=== PATIENT | female | born 1935 | race Caucasian/White ===

== ENCOUNTER 2018-04-13 17:30 | Inpatient (IN) ==
[2018-04-13] MEDS ORDERED: SALINE FLUSH 10ml SYRINGE IV PRN (18:01)
[2018-04-13] MEDS ORDERED: MORPHINE SULFATE 2mg INJECTION IVP PRN (18:01)
--- OUTSIDE RECORDS SUMMARY | 2018-04-13 18:01 | External Medical Summary | Continuity of Care Document ---
:1935 Author Organization [facility] Allergies Active Description Code Type Severity Reaction Onset Reported/ Identified Relationship Clinical to Patient Status Yes ALBUTEROL 86151 Drug Moderate N/A 708 [place] [address] Drug Moderate N/A 220 Aller gy Yes DOXYCYCLINE 90001 Drug Moderate N/A 640 Aller gy Yes NARCOTICS 55459 Drug Moderate N/A 027 Aller gy Yes PCN 71193 Drug Moderate N/A (penicillin) 020 Aller gy Yes SULFA 58909 Drug Moderate N/A (sulfonamide 022 Aller ) gy Yes albuterol 1814 1 N/A heart races Yes doxycycline 2748 1 N/A N/A Yes NARCOTIC 1616 1 N/A sensitive ANTAGONIST (OBSOLETE) Yes Penicillins 476 3 N/A N/A Yes Sulfa 491 3 N/A N/A (Sulfonamide Antibiotics) Medications Medication Packaging Start Date Stop Date Route Dosage Sig 10/04/2014 PO 5 mg Dulcolax DAILY Xopenex 10/04/2014 ORAL INH 15 gm Hfa PRN 10/04/2014 PO 20 mg Omeprazole HS 10/04/2014 PO 100 mg Benzonatate PRN Advair 10/04/2014 PO 1 each 500-50 Diskus BID 10/04/2014 PO 40 mg Simvastatin DAILY 03/05/2018 PO 20 SIMVASTATIN (ZOCOR) TAB : 20MG 03/05/2018 PO 20 OMEPRAZOLE (PRILOSEC) CAPSULE : 20MG DIGOXIN 03/06/2018 PO 0.125 (LANOXIN) TAB :0.125MG 03/06/2018 PO 180 DILTIAZEM (TAZTIA XT) CAP : 180 MG XARELTO 03/06/2018 PO 20 TAB: 20 MG 03/06/2018 PO 500 METRONIDAZOLE (FLAGYL) TAB : 250MG Problems Date Dx Attending Type Code Diagnosis Diagnosed By Coded 11/09/2017 QUINCY ECHEVERRIA R0902 Hypoxemia 11/09/2017 QUINCY ECHEVERRIA R5381 Other malaise 11/09/2017 QUINCY ECHEVERRIA R6883 Chills (without fever) 02/22/2018 QUINCY ECHEVERRIA L84 Corns and callosities 03/07/2018 ZACARIAS VILLAR S [id number] Elevated white blood cell count, unspecified 03/07/2018 ZACARIAS VILLAR P E860 Dehydration 03/07/2018 ZACARIAS VILLAR S I10 Essential (primary) hypertension 03/07/2018 ZACARIAS VILLAR S J449 Chronic obstructive pulmonary disease, unspecified 03/07/2018 ZACARIAS VILLAR A R531 Weakness 03/23/2018 QUINCY ECHEVERRIA R13115 Elevated white blood cell count, unspecified 03/23/2018 QUINCY ECHEVERRIA E1165 Type 2 diabetes mellitus with hyperglycemia 03/23/2018 QUINCY ECHEVERRIA R531 Weakness 04/05/2018 QUINCY ECHEVERRIA [id number] Elevated white blood cell count, unspecified 04/05/2018 QUINCY ECHEVERRIA E1165 Type 2 diabetes mellitus with hyperglycemia 04/05/2018 QUINCY ECHEVERRIA R531 Weakness Procedures There is no data. Results Test Result Range INFLUENZA A & B, MOLECULAR - 11/09/17 13:35 INFLUENZA A NEGATIVE NORMAL: NEGATIVE INFLUENZA B NEGATIVE NORMAL: NEGATIVE COMP METABOLIC - 11/09/17 14:24 COMP METABOLIC LAB NRG GLUCOSE 116 mg/dL 70 - 110 BUN 18 mg/dL 7 - 18 CREATININE 1.23 mg/dL 0.60 - 1.30 AGE 82 YEARS NRG GFR 41.7 60.0 - 120 SODIUM 140 mmol/L 136 - 145 POTASSIUM 3.9 mmol/L 3.5 - 5.1 CHLORIDE 104 mmol/L 98 - 107 CO2 28 mmol/L 21 - 32 CALCIUM 8.9 mg/dL 8.5 - 10.1 AST 57 U/L 15 - 37 ALT 47 U/L 12 - 78 ALKALINE PHOS 82 U/L 50 - 136 TOTAL PROTEIN 7.4 g/dL 6.4 - 8.2 ALBUMIN 3.4 g/dL 3.4 - 5.0 TOTAL BILI 0.20 mg/dL 0.00 - 1.00 CBC W/ DIFF - 11/09/17 14:24 CBC W/ DIFF LAB NRG WBC 7.5 x10^3 4.8 - 10.8 RBC 4.27 x10^6 4.20 - 5.40 HEMOGLOBIN 11.1 g/dL 12.0 - 16.0 HEMATOCRIT 35.2 % 37.0 - 47.0 MCV 82 fL 80 - 100 MCH 26.0 pg 27.0 - 33.0 MCHC 31.5 g/dL 33.0 - 37.0 RDW 14.0 % 11.5 - 14.5 PLATELETS 322 x10^3 150 - 450 MPV 10.8 fL 7.8 - 11.0 NEUTROPHILS 54.7 % 40.0 - 80.0 LYMPHOCYTES 27.9 % 20.0 - 45.0 MONOCYTES 12.4 % 0.0 - 10.0 EOSINOPHILS 3.7 % 0.0 - 5.0 BASOPHILS 0.9 % 0.0 - 2.0 IMMATURE GRAN 0.4 % 0.0 - 2.0 NUCLEATED RBC'S 0.0 % 0.0 - 1.0 REFLEX MAN DIFF NO NRG CBC W/ DIFF - 03/05/18 16:02 CBC W/ DIFF LAB NRG WBC 15.1 x10^3 4.8 - 10.8 RBC 3.92 x10^6 4.20 - 5.40 HEMOGLOBIN 9.4 g/dL 12.0 - 16.0 HEMATOCRIT 31.6 % 37.0 - 47.0 MCV 81 fL 80 - 100 MCH 24.0 pg 27.0 - 33.0 MCHC 29.7 g/dL 33.0 - 37.0 RDW 14.6 % 11.5 - 14.5 PLATELETS 336 x10^3 150 - 450 MPV 9.9 fL 7.8 - 11.0 NEUTROPHILS 79.9 % 40.0 - 80.0 LYMPHOCYTES 14.1 % 20.0 - 45.0 MONOCYTES 2.6 % 0.0 - 10.0 EOSINOPHILS 2.4 % 0.0 - 5.0 BASOPHILS 0.5 % 0.0 - 2.0 IMMATURE GRAN 0.5 % 0.0 - 2.0 NUCLEATED RBC'S 0.0 % 0.0 - 1.0 REFLEX MAN DIFF YES NRG SEG 81 %% 40 - 80 BAND 0 %% 0 - 5 LYMPH 15 %% 20 - 45 MONO 0 %% 0 - 10 EOS 3 %% 0 - 5 BASO 1 %% 0 - 2 ATYP LYMPH 0 %% 0 - 10 META 0 %% 0 - 1 RBC MORPHOLOGY SEE BELOW NRG ANISO SLIGHT NORMAL: NONE SEEN POIK NONE SEEN NORMAL: NONE SEEN HYPO 2+ NORMAL: NONE SEEN MICRO NONE SEEN NORMAL: NONE SEEN MACRO NONE SEEN NORMAL: NONE SEEN POLY NONE SEEN NORMAL: NONE SEEN TOXIC GRAN NONE SEEN NORMAL: NONE SEEN NUCLEATED RBC NONE SEEN NORMAL: NONE SEEN STOMATOCYTES 1+ NORMAL: NONE SEEN COMP METABOLIC - 03/05/18 16:02 COMP METABOLIC LAB NRG GLUCOSE 156 mg/dL 70 - 110 BUN 25 mg/dL 7 - 18 CREATININE 1.36 mg/dL 0.60 - 1.30 AGE 83 YEARS NRG GFR 37.0 60.0 - 120 SODIUM 140 mmol/L 136 - 145 POTASSIUM 4.3 mmol/L 3.5 - 5.1 CHLORIDE 105 mmol/L 98 - 107 CO2 30 mmol/L 21 - 32 CALCIUM 8.5 mg/dL 8.5 - 10.1 AST 39 U/L 15 - 37 ALT 32 U/L 14 - 63 ALKALINE PHOS 82 U/L 50 - 136 TOTAL PROTEIN 6.3 g/dL 6.4 - 8.2 ALBUMIN 2.9 g/dL 3.4 - 5.0 TOTAL BILI 0.30 mg/dL 0.00 - 1.00 PRO B-TYPE NATRIURETIC PEPTIDE - 03/05/18 16:02 PBNP 346 pg/mL 0 - 450 CKMB - 03/05/18 16:02 CKMB 1.1 ng/mL 0.0 - 3.6 TROPONIN I (QUANT) - 03/05/18 16:02 TROPONIN I <0.02 ng/mL 0.00 - 0.05 DIGOXIN - 03/05/18 16:02 DIGOXIN 0.84 ng/mL 0.90 - 2.00 UA AUTO W/ MICRO - 03/06/18 05:00 GLUCOSE Negative NORMAL: Negative UA AUTO W/ MICRO LAB NRG COLOR Sandy NORMAL: Yellow APPEARANCE Clear NORMAL: Clear BILIRUBIN Small NORMAL: Negative KETONE Negative NORMAL: Negative SPEC GRAVITY 1.015 NORMAL: 1.005-1.030 BLOOD Moderate NORMAL: Negative PROTEIN 30 NORMAL: Negative PH 6.0 NORMAL: 5.0-8.0 UROBILINOGEN 0.2 NORMAL: 0.2-1.0 NITRITE Negative NORMAL: Negative LEUKOCYTES Negative NORMAL: Negative MICRO RBC 5-10 NORMAL: 0-2 MICRO WBC 2-5 NORMAL: 0-2 BACTERIA Trace NORMAL: None-Trace EPI CELLS 10-15 NORMAL: 0-15 MUCUS None Seen NORMAL: None-Small AMORPHOUS None Seen NORMAL: None Seen YEAST None Seen NORMAL: None Seen CRYSTALS None Seen NORMAL: None Seen CAST None Seen NORMAL: None Seen URINE CULTURE? NO NRG SPEC SOURCE: RANDOM NRG COMP METABOLIC - 03/06/18 07:44 COMP METABOLIC LAB NRG GLUCOSE 132 mg/dL 70 - 110 BUN 18 mg/dL 7 - 18 CREATININE 1.13 mg/dL 0.60 - 1.30 AGE 83 YEARS NRG GFR 45.9 60.0 - 120 SODIUM 139 mmol/L 136 - 145 POTASSIUM 4.1 mmol/L 3.5 - 5.1 CHLORIDE 106 mmol/L 98 - 107 CO2 28 mmol/L 21 - 32 CALCIUM 8.0 mg/dL 8.5 - 10.1 AST 39 U/L 15 - 37 ALT 32 U/L 14 - 63 ALKALINE PHOS 55 U/L 50 - 136 TOTAL PROTEIN 5.6 g/dL 6.4 - 8.2 ALBUMIN 2.4 g/dL 3.4 - 5.0 TOTAL BILI 0.40 mg/dL 0.00 - 1.00 CBC W/ DIFF - 03/06/18 07:44 CBC W/ DIFF LAB NRG WBC 21.9 x10^3 4.8 - 10.8 RBC 3.63 x10^6 4.20 - 5.40 HEMOGLOBIN 8.7 g/dL 12.0 - 16.0 HEMATOCRIT 28.7 % 37.0 - 47.0 MCV 79 fL 80 - 100 MCH 24.0 pg 27.0 - 33.0 MCHC 30.3 g/dL 33.0 - 37.0 RDW 14.9 % 11.5 - 14.5 PLATELETS 283 x10^3 150 - 450 MPV 9.8 fL 7.8 - 11.0 NEUTROPHILS 78.6 % 40.0 - 80.0 LYMPHOCYTES 12.0 % 20.0 - 45.0 MONOCYTES 7.3 % 0.0 - 10.0 EOSINOPHILS 0.9 % 0.0 - 5.0 BASOPHILS 0.3 % 0.0 - 2.0 IMMATURE GRAN 0.9 % 0.0 - 2.0 NUCLEATED RBC'S 0.0 % 0.0 - 1.0 REFLEX MAN DIFF YES NRG SEG 82 %% 40 - 80 BAND 4 %% 0 - 5 LYMPH 12 %% 20 - 45 MONO 1 %% 0 - 10 EOS 0 %% 0 - 5 BASO 0 %% 0 - 2 ATYP LYMPH 1 %% 0 - 10 META 0 %% 0 - 1 RBC MORPHOLOGY SEE BELOW NRG CALLED TO: DANETTE @ 0801 03/06/18 BY NEW NRG ANISO SLIGHT NORMAL: NONE SEEN POIK NONE SEEN NORMAL: NONE SEEN HYPO 2+ NORMAL: NONE SEEN MICRO SLIGHT NORMAL: NONE SEEN MACRO NONE SEEN NORMAL: NONE SEEN POLY NONE SEEN NORMAL: NONE SEEN TOXIC GRAN NONE SEEN NORMAL: NONE SEEN NUCLEATED RBC NONE SEEN NORMAL: NONE SEEN STOMATOCYTES SLIGHT NORMAL: NONE SEEN CLOSTRIDIUM DIFFICILE TOXIN A/B - 03/06/18 12:00 C DIF TOX A/B NEGATIVE NORMAL: NEGATIVE CBC (HEMOGRAM ONLY) - 03/07/18 07:45 WBC 14.7 x10^3 4.8 - 10.8 RBC 3.76 x10^6 4.20 - 5.40 HEMOGLOBIN 9.1 g/dL 12.0 - 16.0 HEMATOCRIT 30.1 % 37.0 - 47.0 MCV 80 fL 80 - 100 MCH 24.2 pg 27.0 - 33.0 MCHC 30.2 g/dL 33.0 - 37.0 RDW 15.1 % 11.5 - 14.5 PLATELETS 310 x10^3 150 - 450 MPV 10.1 fL 7.8 - 11.0 CBC (HEMOGRAM ONLY) LAB NRG COMP METABOLIC - 03/07/18 07:45 COMP METABOLIC LAB NRG GLUCOSE 127 mg/dL 70 - 110 BUN 9 mg/dL 18 CREATININE 1.08 mg/dL 0.60 - 1.30 AGE 83 YEARS NRG GFR 48.3 60.0 - 120 SODIUM 138 mmol/L 136 - 145 POTASSIUM 3.9 mmol/L 3.5 - 5.1 CHLORIDE 103 mmol/L 98 - 107 CO2 32 mmol/L 21 - 32 CALCIUM 8.4 mg/dL 8.5 - 10.1 AST 44 U/L 15 - 37 ALT 39 U/L 14 - 63 ALKALINE PHOS 62 U/L 50 - 136 TOTAL PROTEIN 6.2 g/dL 6.4 - 8.2 ALBUMIN 2.7 g/dL 3.4 - 5.0 TOTAL BILI 0.30 mg/dL 0.00 - 1.00 C-REACTIVE PROTEIN - 03/07/18 07:45 CRP 112 mg/L 0 - 5 UA AUTO W/ MICRO - 03/10/18 13:50 GLUCOSE Negative NORMAL: Negative UA AUTO W/ MICRO LAB NRG COLOR Yellow NORMAL: Yellow APPEARANCE Slightly NORMAL: Clear BILIRUBIN Small NORMAL: Negative KETONE Trace NORMAL: Negative SPEC GRAVITY 1.015 NORMAL: 1.005-1.030 BLOOD Negative NORMAL: Negative PROTEIN 30 NORMAL: Negative PH 6.5 NORMAL: 5.0-8.0 UROBILINOGEN 0.2 NORMAL: 0.2-1.0 NITRITE Negative NORMAL: Negative LEUKOCYTES Trace NORMAL: Negative MICRO RBC None Seen NORMAL: 0-2 MICRO WBC 0-2 NORMAL: 0-2 BACTERIA None Seen NORMAL: None-Trace EPI CELLS >30 NORMAL: 0-15 MUCUS None Seen NORMAL: None-Small AMORPHOUS None Seen NORMAL: None Seen YEAST None Seen NORMAL: None Seen CRYSTALS None Seen NORMAL: None Seen CAST None Seen NORMAL: None Seen URINE CULTURE? NO NRG SPEC SOURCE: RANDOM NRG CBC W/ DIFF - 03/10/18 14:00 CBC W/ DIFF LAB NRG WBC 12.5 x10^3 4.8 - 10.8 RBC 4.10 x10^6 4.20 - 5.40 HEMOGLOBIN 9.9 g/dL 12.0 - 16.0 HEMATOCRIT 33.0 % 37.0 - 47.0 MCV 81 fL 80 - 100 MCH 24.1 pg 27.0 - 33.0 MCHC 30.0 g/dL 33.0 - 37.0 RDW 15.0 % 11.5 - 14.5 PLATELETS 409 x10^3 150 - 450 MPV 9.9 fL 7.8 - 11.0 NEUTROPHILS 59.2 % 40.0 - 80.0 LYMPHOCYTES 24.9 % 20.0 - 45.0 MONOCYTES 9.9 % 0.0 - 10.0 EOSINOPHILS 4.5 % 0.0 - 5.0 BASOPHILS 0.9 % 0.0 - 2.0 IMMATURE GRAN 0.6 % 0.0 - 2.0 NUCLEATED RBC'S 0.0 % 0.0 - 1.0 REFLEX MAN DIFF NO NRG COMP METABOLIC - 03/10/18 14:00 COMP METABOLIC LAB NRG GLUCOSE 203 mg/dL 70 - 110 BUN 11 mg/dL 7 - 18 CREATININE 1.13 mg/dL 0.60 - 1.30 AGE 83 YEARS NRG GFR 45.9 60.0 - 120 SODIUM 139 mmol/L 136 - 145 POTASSIUM 3.7 mmol/L 3.5 - 5.1 CHLORIDE 102 mmol/L 98 - 107 CO2 28 mmol/L 21 - 32 CALCIUM 8.9 mg/dL 8.5 - 10.1 AST 47 U/L 15 - 37 ALT 39 U/L 14 - 63 ALKALINE PHOS 66 U/L 50 - 136 TOTAL PROTEIN 6.8 g/dL 6.4 - 8.2 ALBUMIN 3.0 g/dL 3.4 - 5.0 TOTAL BILI 0.20 mg/dL 0.00 - 1.00 HGB A1C - 03/15/18 13:50 HGB A1C 7.0 % 4.5 - 6.2 eAG 154 mg/dL NRG CBC W/ DIFF - 03/22/18 11:56 CBC W/ DIFF LAB NRG WBC 10.8 x10^3 4.8 - 10.8 RBC 4.31 x10^6 4.20 - 5.40 HEMOGLOBIN 10.1 g/dL 12.0 - 16.0 HEMATOCRIT 34.3 % 37.0 - 47.0 MCV 80 fL 80 - 100 MCH 23.4 pg 27.0 - 33.0 MCHC 29.4 g/dL 33.0 - 37.0 RDW 15.4 % 11.5 - 14.5 PLATELETS 511 x10^3 150 - 450 MPV 10.9 fL 7.8 - 11.0 NEUTROPHILS 63.2 % 40.0 - 80.0 LYMPHOCYTES 24.9 % 20.0 - 45.0 MONOCYTES 6.5 % 0.0 - 10.0 EOSINOPHILS 3.9 % 0.0 - 5.0 BASOPHILS 1.2 % 0.0 - 2.0 IMMATURE GRAN 0.3 % 0.0 - 2.0 NUCLEATED RBC'S 0.0 % 0.0 - 1.0 REFLEX MAN DIFF NO NRG BASIC METABOLIC - 03/22/18 11:56 GLUCOSE 185 mg/dL 70 - 110 BUN 16 mg/dL - 18 CREATININE 1.35 mg/dL 0.60 - 1.30 AGE 83 YEARS NRG GFR 37.4 60.0 - 120 SODIUM 136 mmol/L 136 - 145 POTASSIUM 4.2 mmol/L 3.5 - 5.1 CHLORIDE 102 mmol/L 98 - 107 CO2 26 mmol/L 21 - 32 CALCIUM 9.2 mg/dL 8.5 - 10.1 BASIC METABOLIC LAB NRG Encounters ACCT No. Visit Discharge Status Pt. Type Provider Facility Loc./Unit Complaint Date/Time [id number] 03/10/2018 03/10/2018 CLS Outpatient ECHEVERRIA, LABS 14:06:00 23:59:59 QUINCY [id number] 03/05/2018 03/07/2018 DIS Outpatient Jackie [facility]ILL[facility] 17:13:00 14:30:00 DON W JOEY N [id number] 02/22/2018 02/22/2018 CLS Outpatient JUWAN, LAB 15:01:00 23:59:59 QUINCY [id number] 11/09/2017 11/09/2017 CLS Outpatient JUWAN, LAB 13:36:00 23:59:59 QUINCY [id number] 09/18/2016 ACT Unknown [id number] 09:38:00 [id number] 08/18/2016 ACT Unknown [id number] 08:54:00 [id number] 08/05/2016 ACT Unknown [id number] 12:41:00 [id number] 07/13/2016 ACT Unknown [id number] 14:04:00 [id number] 01/23/2016 ACT Unknown [id number] 14:28:00 [id number] 01/08/2016 ACT Unknown [id number] 11:00:00 [id number] 10/25/2015 ACT Unknown [id number] 09:49:00 [id number] 09/26/2015 ACT Unknown [id number] 17:47:00 [id number] 10/22/2014 ACT Unknown [id number] 08:51:00 [id number] 10/04/2014 ACT Unknown [id number] 12:47:00 [id number] 07/20/2014 ACT Unknown [id number] 10:00:00 [id number] 06/04/2014 ACT Unknown [id number] 11:23:00 [id number] 05/11/2014 ACT Unknown [id number] 12:58:00 [id number] 03/15/2014 ACT Unknown [id number] 08:54:00 [id number] 01/18/2014 ACT Unknown [id number] 11:19:00 [id number] 01/08/2014 ACT Unknown [id number] 08:16:00 [id number] 12/28/2013 ACT Unknown [id number] 13:30:00 [id number] 11/27/2013 ACT Unknown [id number] 12:53:00 [id number] 11/14/2013 ACT Unknown [id number] 11:52:00 [id number] 11/14/2013 ACT Unknown [id number] 11:52:00 [id number] 11/01/2013 ACT Unknown [id number] 08:30:00 [id number] 09/28/2013 ACT Unknown [id number] 09:56:00 [id number] 07/26/2013 ACT Unknown [id number] 22:23:00 [id number] 07/18/2013 ACT Unknown [id number] 08:45:00 [id number] 06/23/2013 ACT Unknown [id number] 10:12:00 [id number] 06/22/2013 ACT Unknown [id number] 08:32:00 [id number] 04/04/2018 04/04/2018 CLS Preadmit ECHEVERRIA, DMEDU EDU 71 13:00:00 23:59:59 QUINCY E11.9 D [employer]ERTY ACC[employer] [id number] 03/26/2016 03/26/2016 CLS Outpatient Caicedo, 14:00:00 23:59:59 Ronna Tse
--- NOTE | 2018-04-13 18:10 | Cardiology History & Physical ---
History of Present Illness Chief complaint: Abnormal EKG, Elevated Troponin, Nausea and Vomiting HPI: Pt is an 83 yo female with PMH including CAD s/p [place] in 1973 or 1974, Hypertension, and recently diagnosed DM2 who [facility] [place] today due too "feling sick". Patient was evaluated and found to have some new ST depressions and T wave inversions on her EKg as well as a slightly elevated troponin. Pt states she was up all night last night with the dry heaves. She denies CP, palpitations, or dizziness. When asked about her breathing, she states "I'm always short of breath". She denies fever or diarrhea. Pt is admitted to Dr. Mcdonald for further evaluation and cardiac workup. Review of Systems - Constitutional Constitutional: Present: malaise. Absent: fatigue, weakness - EENMT Eyes: Absent: change in vision Mouth/Throat: Absent: sore throat - Cardiovascular Cardiovascular: Present: dyspnea on exertion. Absent: chest pain, palpitations , syncope, orthopnea, edema Rhythm: Present: regular rhythm Vascular: Absent: pedal edema - Respiratory Respiratory: Present: dyspnea, dyspnea on exertion. Absent: cough, wheezing, chest congestion - Gastrointestinal Gastrointestinal: Present: nausea, vomiting. Absent: abdominal pain, constipation, diarrhea - Genitourinary Genitourinary: Absent: dysuria, urinary urgency - Integumentary/Breasts Integumentary: Absent: rash, wounds - Neurological Neurological: Absent: abnormal speech, dizziness, paresthesias, vertigo, weakness - Psychiatric Psychiatric: Absent: homicidal ideation, suicidal ideation - Endocrine Endocrine: Absent: cold intolerance, heat intolerance, palpitations - Hematologic/Lymphatic Hematologic/Lymphatic: Absent: easy bleeding, easy bruising PFSH Hypertension Hyperlipidemia Diabetes, type II [place] in or 1974 Surgical History: None Family History: No CAD Father - emphysema - Social History Smoking status: Never smoker Substance use type: does not use Alcohol intake frequency: does not drink Medications Home Medications Medication Instructions Recorded Confirmed Type Cholecalciferol (Vitamin D3) 400 unit PO DAILY 04/13/18 04/13/18 History [Vitamin D3] Cyclobenzaprine HCl 10 mg PO HS PRN 04/13/18 04/13/18 History Digoxin [Digitek] 125 mcg PO DAILY 04/13/18 04/13/18 History Fluticasone/Salmeterol 500/50 1 puff INH BID 04/13/18 04/13/18 History [Advair 500-50Diskus] Ibuprofen 200 - 400 mg PO QID PRN 04/13/18 04/13/18 History Levalbuterol Tartrate [Xopenex Hfa] 45 mcg INH Q6H PRN 04/13/18 04/13/18 History Lisinopril [Prinivil] 20 mg PO DAILY 04/13/18 04/13/18 History Meloxicam 15 mg PO DAILY 04/13/18 04/13/18 History Metformin HCl 500 mg PO DAILY 04/13/18 04/13/18 History Multivit with Iron-Minerals 1 tab PO DAILY 04/13/18 04/13/18 History [[facility]] Nitroglycerin [Nitrostat] 0.4 mg SL Q5M PRN 04/13/18 04/13/18 History Omeprazole [Prilosec] 20 mg PO ACB 04/13/18 04/13/18 History Rivaroxaban [Xarelto] 20 mg PO DAILY 04/13/18 04/13/18 History Simvastatin 20 mg PO HS 04/13/18 04/13/18 History dilTIAZem HCl [Diltiazem ER] 180 mg PO BID 04/16/18 04/16/18 History Allergies Allergy/AdvReac Type Severity Reaction Status Date / Time albuterol Allergy Mild TACHYCARDIA Verified 02/29/08 13:47 Penicillins Allergy Mild RASH Verified 02/29/08 13:46 Sulfa (Sulfonamide Allergy Mild RASH Verified 02/29/08 13:46 Antibiotics) doxycycline Allergy Unknown RASH Verified 04/13/18 20:04 NARCOTICS AdvReac Unknown SENSITIVE Uncoded 04/13/18 20:05 Exam - Constitutional mild distress, well nourished, well developed, cooperative - Routine HEENT Exam Head: Present: normocephalic, atraumatic Eye: Present: EOMI, PERRL Nose: moist mucous membranes - Routine Neck Exam Present: supple, carotid bruit. Absent: JVD Comments: right - Routine Chest/Breast/Axilla Exam Chest wall: Absent: tenderness - Routine Respiratory Exam Present: CTA bilaterally. Absent: accessory muscle use, dyspnea, rales, rhonchi , stridor, wheezes - Routine Cardiovascular Exam Present: RRR, S1, S2, murmur. Absent: gallop, rubs, JVD - Routine Abdominal Exam Present: soft, normoactive bowel sounds, non tender. Absent: rebound, guarding - Routine Extremities Exam Present: pulses intact, normal capillary refill. Absent: cyanosis, clubbing, edema - Routine Skin Exam Present: intact, dry, warm. Absent: cyanosis, wounds, rash - Routine Neurological Exam Present: alert, oriented X3, CN II-XII intact, moving all extremities, normal speech - Routine Psychiatric Exam Present: normal affect, cooperative Results 04/16/18 04:16 04/16/18 04:16 Intake and Output 04/13/18 04/13/18 04/13/18 06:59 14:59 22:59 Other: Weight 83.2 kg Patient Weight 04/14/18 06:59 Weight 83.2 kg - Imaging and Cardiology Echo: pending EKG results: report reviewed - EKG Interpretation EKG: sinus rhythm EKG interpretations - EKG EKG results cardiology: sinus rhythm - Blocks, axis, hypertrophy, ST abn Repolarization changes or abnormalities: ST suggestive of injury Hospital Course This is a general summary of the patient's hospital course. For more details refer to the complete medical record. Time spent with patient: less than 15 minutes Resuscitation Status: Full Code Assessment and Plan - Attestation Attestation Narrative: 04/22/18 15:59 Recommendation After examining the patient I agree with the above assessment. I am involved in the formulation of the patient's plan of care. - Assessment and Plan (1) Abnormal EKG Status: Resolved (2) Elevated troponin Status: Resolved (3) Hypertension Status: Chronic (4) Hyperlipidemia Status: Chronic (5) Coronary artery disease Status: Chronic (6) Carotid bruit Status: Chronic (7) Diabetes Status: Chronic - Assessment and Plan Abnormal EKG -NSR, ST-T wave changes, no acute ischemia, but reportedly different than most recent EKG -Continue to monitor on tele -CXR: pending -Initial troponin 0.06, will trend -Echo pending Elevated Troponin -NSR, ST-T wave changes, no acute ischemia, but reportedly different than most recent EKG -Continue to monitor on tele -CXR: pending -Initial troponin 0.06, will trend -Start asa 81 mg daily -Echo pending Nausea/Vomiting -Acute onset -Present <24 hours -Denies diarrhea -prn ondansetron -medicine consulted for further evaluation CAD s/p [place] in 1973 or 1974/CABG in 2006 -Will start asa 81 mg PO daily -Echo pending Carotid Bruit -Right bruit -Will obtain carotid u/s -Continue risk management Hypertension -Continue diltiazem 160 BID -Continue lisinopril 20 mg daily -Monitor Hyperlipidemia -Pt states she doesn't know if she has high cholesterol or not -Resume home statin therapy -Lipids Pending Diabetes, Type II -Home metformin on hold d/t potential need for HC -SS insulin -Hgb A1C pending COPD? -On chronic O2 -Resume home Advair and levalbuterol -Never smoker, exposed to a lot of 2nd hand smoke GERD -Continue home omeprazole Ppx: Home xarelto being held (no clear indication for it's use) SQ Heparin Omeprazole
[2018-04-13] MEDS ORDERED: ONDANSETRON 4 MG/2 ML INJECTION IVP PRN (19:36)
[2018-04-13] MEDS ORDERED: LEVALBUTEROL 45 MCG ORAL INH PRN (20:24)
[2018-04-13] MEDS ORDERED: CYCLOBENZAPRINE 10 MG TABLET PO PRN (20:24)
[2018-04-13] MEDS ORDERED: NITROGLYCERIN 0.4 MG SUBLINGUAL TABLET SL PRN (20:24)
[2018-04-13] MEDS ORDERED: DEXTROSE 50% SYRINGE 50ml (1 AMP) IVP PRN (20:43)
[2018-04-13] MEDS ORDERED: GLUCOSE ORAL GEL 40% 37.5gm PO PRN (20:43)
[2018-04-13] MEDS: MAGNESIUM OXIDE 400 MG TABLET PO SCH (21:12)
[2018-04-13] MEDS: LISINOPRIL 20 MG TABLET PO SCH (21:12)
[2018-04-13] MEDS: HEPARIN SUB-Q 5,000units/0.5ml INJECTION SQ SCH (21:13)
[2018-04-13] MEDS: SIMVASTATIN 20 MG TABLET PO SCH (22:38)
[2018-04-14] MEDS: OMEPRAZOLE 20 MG CAPSULE PO SCH (06:11)
[2018-04-14] MEDS: MAGNESIUM OXIDE 400 MG TABLET PO SCH (08:26)
[2018-04-14] MEDS: HEPARIN SUB-Q 5,000units/0.5ml INJECTION SQ SCH ×2 (08:26→17:45)
[2018-04-14] MEDS: LISINOPRIL 20 MG TABLET PO SCH (08:26)
[2018-04-14] MEDS: ASPIRIN *EC* 81 MG TABLET PO SCH (08:26)
--- NOTE | 2018-04-14 08:49 | XRay Report ---
Indication: Elevated Troponin PROCEDURE: XR chest 1V: Encounter: Initial Comparison: None Findings: Lungs are clear. No pleural effusion or pneumothorax. Overlying monitoring leads. Evidence of prior CABG. Thoracic spinal fusion right side noted. The left malcom is disconnected from the top pedicle hook. Pulmonary vascularity and mediastinal contours are within normal limits. Impression: No acute cardiopulmonary disease. .
--- NOTE | 2018-04-14 08:58 | Ultrasound Report ---
Indication: carotid bruit PROCEDURE: US carotid doppler BI: TECHNIQUE: Grayscale, color and duplex Doppler imaging was performed of the carotid systems bilaterally. Velocities in cm/sec - validated velocity measurements with angiographic measurements, velocity criteria are extrapolated from diameter data as defined by the Society of Radiologists in Ultrasound Consensus Conference Radiology 2003; 229;340-346. RIGHT: PSV ICA 90.4 EDV ICA 24.4 PSV CCA 82.1 EDV CCA 21.2 PSV ECA 68.6 ICA Diameter reduction 10%-30% (1.0-1.2 PSV<110)% LEFT: PSV ICA 92 EDV ICA 30.2 PSV CCA 67.3 EDV CCA 14.7 PSV ECA 58 ICA Diameter reduction 10%-30% (1.0-1.2 PSV<110)% The right vertebral artery is patent with cephalic flow. The left vertebral artery is patent with cephalic flow. Mild plaque in the carotid bulbs bilaterally. IMPRESSION: No hemodynamically significant carotid stenosis. .
[2018-04-14 10:26] VITALS: BMI 32.4
--- NOTE | 2018-04-14 10:29 | Consult Note ---
Consult Information - Data of Consult Consult date: 04/14/18 Requesting Physician: Nolberto Mcdonald MD Primary Care Provider: Judy Crump APRN - Consult Narrative Reason for consult: Nausea and vomiting History of present illness: Daphne is seen today in consultation as requested by cardiology team for nausea and vomiting. Pt reports symptoms started the night of 04/12/18. She was concerned that she had food poisoning. She presented to [facility] and was seen in the emergency room. She was found to have ST changes along with a elevated of Troponin. She was transferred to [facility] under the care of Dr Mcdonald for cardiology care. On arrival she continued to be nauseous and the hospitalist services were consulted for medical evaluation. She is seen this morning while resting in bed. She is alert and orientated and states that she is eager to go home. She denies having any pain or feeling short of breath. She is chronically on oxygen for "bad lungs". She is also noted to chronically be on Xarelto and states this is due to history of PE in the past. Nausea and vomiting has now subsided and she tolerated a large breakfast this morning. Past Medical History Medical History Updates: HTN. Diabetes type 2. Hyperlipidemia. Coronary artery disease. Lung disease-questionable COPD, chronic oxygen use. Hx of pulmonary emboli-3-4 years ago. Chronic anticoagulation-Xarelto Surgical History: Reactive bypass-2006. Hysteroscopy-2014. Back surgery-1996. Foot surgery. Tubal ligation Family History: Father-lung disease, heart disease Mother-lung disease Family History: As Above - Social History Smoking status: Never smoker Substance use type: does not use Alcohol intake frequency: does not drink Housing: house Current occupational status: retired Social history: PCP Judy Crump- [facility]-Dr. Angie Alvarez Review of Systems All systems PM: 10-point ROS was reviewed, no additional remarkable complaints except Review of systems: Denies ROS at time of examination Medications Home Medications Medication Instructions Recorded Confirmed Type Diltiazem HCl (Diltiazem ER) 180 mg PO BID #0 cap 10/04/14 04/13/18 History Cholecalciferol (Vitamin D3) 400 unit PO DAILY 04/13/18 04/13/18 History [Vitamin D3] Cyclobenzaprine HCl 10 mg PO HS PRN 04/13/18 04/13/18 History Digoxin [Digitek] 125 mcg PO DAILY 04/13/18 04/13/18 History Fluticasone/Salmeterol 500/50 1 puff INH BID 04/13/18 04/13/18 History [Advair 500-50Diskus] Ibuprofen 200 - 400 mg PO QID PRN 04/13/18 04/13/18 History Levalbuterol Tartrate [Xopenex Hfa] 45 mcg INH Q6H PRN 04/13/18 04/13/18 History Lisinopril [Prinivil] 20 mg PO DAILY 04/13/18 04/13/18 History Meloxicam 15 mg PO DAILY 04/13/18 04/13/18 History Metformin HCl 500 mg PO DAILY 04/13/18 04/13/18 History Multivit with Iron-Minerals 1 tab PO DAILY 04/13/18 04/13/18 History [[facility] [employer]] Nitroglycerin [Nitrostat] 0.4 mg SL Q5M PRN 04/13/18 04/13/18 History Omeprazole [Prilosec] 20 mg PO ACB 04/13/18 04/13/18 History Rivaroxaban [Xarelto] 20 mg PO DAILY 04/13/18 04/13/18 History Simvastatin 20 mg PO HS 04/13/18 04/13/18 History Allergies Allergy/AdvReac Type Severity Reaction Status Date / Time albuterol Allergy Mild TACHYCARDIA Verified 02/29/08 13:47 Penicillins Allergy Mild RASH Verified 02/29/08 13:46 Sulfa (Sulfonamide Allergy Mild RASH Verified 02/29/08 13:46 Antibiotics) doxycycline Allergy Unknown RASH Verified 04/13/18 20:04 NARCOTICS AdvReac Unknown SENSITIVE Uncoded 04/13/18 20:05 Exam Vital Signs: Temperature 98.2 F 04/14/18 08:00 Pulse Rate 74 04/14/18 08:00 Respiratory Rate 25 H 04/14/18 08:00 Blood Pressure 137/75 04/14/18 08:00 Pulse Oximetry 98 04/14/18 08:00 Height/Weight/BMI: Height 1.6 m Weight 83 kg Body Mass Index 32.5 - Constitutional Present: no acute distress, well nourished, well developed - Routine HEENT Exam Eye: Present: EOMI ENT: Present: mucous membranes moist, dentition normal - Routine Respiratory Exam Present: CTA bilaterally. Absent: wheezes - Routine Cardiovascular Exam Present: RRR, S1, S2. Absent: murmur - Routine Abdominal Exam Present: soft, normoactive bowel sounds, non distended. Absent: tenderness - Routine Extremities Exam Present: no edema, pulses intact - Routine Back/Spine/Pelvis Exam Back/Spine: Present: full ROM - Routine Skin Exam Present: intact, dry, warm - Routine Neurological Exam Present: alert, oriented X3, CN II-XII intact, moving all extremities - Routine Psychiatric Exam Present: normal affect, normal thought process, cooperative Results - Labs CBC & Chem 7: 04/13/18 18:18 08 18:18 Assessment and Plan Assessment and Plan: Impression Abnormal EKG Nausea- Improved CAD HTN Diabetes- Type 2 Chronic lung disease (?COPD) Chronic oxygen use Hx PE- Chronic anticoagulation- Xarelto Obesity with BMI 32.4 Plan Continued cardiac care as per Dr. Mcdonald. Echocardiogram is pending. Her blood pack sure and continue on home regimen. He generally takes metformin at home. Currently on hold, utilize sliding scale insulin. Continue on chronic oxygen use Advair and Xopenex. Heparin subcutaneous every 8 hours for anticoagulation, home Xarelto currently on hold. Patient does report some mild constipation. Will start MiraLAX daily and milk of magnesia as needed. Given mild leukocytosis. We'll obtain a urinalysis to rule out infection. Nausea appears to be well-controlled, Zofran available as needed. Appreciate consultation. The hospitalist services will continue to follow patient medically manage existing comorbidities. At time of discharge medical care will return to PCP, Judy Crump-ASSISTANT EDUCATION DIRECTOR at [facility] in [place]. DVT Prophylaxis: Xarelto Resuscitation Status: Full Code - Physician Narrative Physician: Ranjan Ramirez MD Narrative: Date: 04/14/18 Time: 1555 Have independently interviewed and examined pt. Chart reviewed. Case discussed with my ASSISTANT EDUCATION DIRECTOR. Care plan developed with my supervision; agree with above. Presents to ED in [place] secondary to nausea and dry heavies-pt felt she at something that disagreed with her. No diarrhea. Breathing stable without increased SOA or congestion, chronically on O2. Not noticing anything wrong with heart-no pain/pressure or palpitations. Evaluated locally. New ST changes found, troponin checked and elevated. Admitted to [facility] under the care of Dr Mcdonald for further evaluation and treatment due to concern for AMI. Consult initiated secondary to N/V. Pt reports symptoms completely resolved. Able to eat well. No ab pain or nausea. Reports having a normal 'good' stool this morning. Not having urinary symptoms. Breathing continues to feel normal and baseline for her. No f/c. Lungs: decreased bilaterally, no distress on O2. 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 Glycemic control overall stable - metformin on hold in case cath needed. Continue home O2. Hospital Course Summary Disclaimer: The visit summary below is not to be considered part of the above Progress Note. Hospital Course: Impression Abnormal EKG Nausea- Improved CAD HTN Diabetes- Type 2 Chronic lung disease (?COPD) Chronic oxygen use Hx PE- Chronic anticoagulation- Xarelto Obesity with BMI 32.4 Plan Continued cardiac care as per Dr. Mcdonald. Echocardiogram is pending. Her blood pack sure and continue on home regimen. He generally takes metformin at home. Currently on hold, utilize sliding scale insulin. Continue on chronic oxygen use Advair and Xopenex. Heparin subcutaneous every 8 hours for anticoagulation, home Xarelto currently on hold. Patient does report some mild constipation. Will start MiraLAX daily and milk of magnesia as needed. Given mild leukocytosis. We'll obtain a urinalysis to rule out infection. Nausea appears to be well-controlled, Zofran available as needed. Appreciate consultation. The hospitalist services will continue to follow patient medically manage existing comorbidities. At time of discharge medical care will return to PCP, Judy Whitaker at [facility].
[2018-04-14] MEDS: DILTIAZEM 90 MG PO SCH ×2 (10:34→20:17)
[2018-04-14] MEDS: INSULIN ASPART 100unit/ml INJECTION SQ PRN (10:43)
--- NOTE | 2018-04-14 15:41 | Echocardiogram ---
DATE OF PROCEDURE April 13, 2018 This is a two-dimensional echo with spectral Doppler, color-flow and M-mode. It was obtained in a patient with abnormal EKG. Left atrium is dilated. Left ventricle end-diastolic dimension is normal. Asymmetrical septal hypertrophy present with no outflow obstruction. Septum thickness is at 1.7 cm and posterior wall thickness is at 1.0 cm. LV systolic function is normal with ejection fraction of about 65%. Right atrium is normal. Right ventricle is normal. Aortic root dimension is normal. Mitral valve is morphologically normal with trace of mitral regurgitation. Aortic valve shows fibrocalcific changes, however, opening motion appears to be preserved. There is no significant stenosis. Mild aortic insufficiency is present. Tricuspid valve shows mild tricuspid regurgitation with estimated pulmonary artery systolic pressure of 31 which is at the upper limits of normal. Pulmonary valve shows no pulmonary insufficiency. There is no pericardial effusion. IMPRESSION 1. Normal LV systolic function with ejection fraction of 65%. 2. Left atrial dilation. 3. Aortic sclerosis with mild aortic insufficiency. 4. Trace of mitral regurgitation. 5. Mild tricuspid regurgitation with estimated pulmonary artery systolic pressure of 31 which is at the upper limits of normal. 6. Asymmetric septal hypertrophy with no outflow obstruction. MTDD
[2018-04-14] MEDS: POLYETHYL GLYCOL 3350 17gm PACKET PO SCH (16:52)
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
--- NOTE | 2018-04-14 17:52 | Cardiology Progress Note ---
<Ninfa Wallace - Last Filed: 04/14/18 18:50> Subjective Principal diagnosis: NSTEMI, nausea and vomiting Interval history: Patient up right in bed reports she feels improved. Nausea and vomiting resolved , reports a solid bowel movement. She denies chest pain, she is having dizziness with positions changes. Dr. Mcdonald spoke to pt at bedside regarding planned heart cath, she agrees with plan. Exam Vital signs: Temperature 97.2 F 04/14/18 16:00 Pulse Rate 72 04/14/18 16:45 Respiratory Rate 40 H 04/14/18 16:45 Blood Pressure 96/71 04/14/18 16:00 Pulse Oximetry 95 04/14/18 16:45 Inpatient Medications: Generic Name Dose Route Start Last Admin Trade Name Freq PRN Reason Stop Dose Admin Aspirin 81 mg 04/14/18 09:00 04/14/18 08:26 Ecotrin PO 81 mg DAILY SERGE Administration Cyclobenzaprine HCl 10 mg 04/13/18 20:24 Flexeril PO HS PRN Muscle spasm Dextrose 0 ml 04/13/18 20:43 D50%W IVP PRN PRN Hypoglycemia Diltiazem HCl 180 mg 04/14/18 09:00 04/14/18 10:34 Cardizem Sr 90 Mg (12 Hr) PO 180 mg BID SERGE Administration Glucose 37.5 gm 04/13/18 20:43 Glutose 15 PO PRN PRN Hypoglycemia Heparin Sodium (Porcine) 5,000 units 04/13/18 20:45 04/14/18 17:45 Heparin Sq SQ 5,000 units Q8HR SERGE Administration Insulin Aspart 1 - 5 unit 04/13/18 20:43 04/14/18 10:43 Novolog SQ 2 unit SS PRN Administration Hyperglycemia Protocol Levalbuterol HCl 1.25 mg 04/13/18 23:13 04/13/18 23:51 Xopenex 1.25mg/3ml AEROSOL 1.25 mg Q8H PRN Administration Lisinopril 20 mg 04/13/18 20:30 04/14/18 08:26 Prinivil PO 20 mg DAILY SERGE Administration Magnesium Hydroxide 30 ml 04/14/18 10:38 Mom PO DAILY PRN constipation Morphine Sulfate 2 mg 04/13/18 18:01 Morphine Sulf 2 Mg Inj IVP Q5MIN3 PRN Pain Nitroglycerin 0.4 mg 04/13/18 20:24 Nitrostat SL Q5M PRN Chest pain Omeprazole 20 mg 04/14/18 06:30 04/14/18 06:11 Prilosec PO 20 mg ACB SERGE Administration Ondansetron HCl 4 mg 04/13/18 19:36 04/13/18 19:42 Zofran IVP 4 mg Q6H PRN Administration Nausea &/or vomiting Polyethylene Glycol 17 gm 04/14/18 10:45 04/14/18 16:52 Miralax PO Not Given DAILY SERGE Simvastatin 20 mg 04/13/18 21:00 04/13/18 22:38 Zocor PO 20 mg HS SERGE Administration Sodium Chloride 10 - 80 ml 04/13/18 18:01 Iv Flush IV PRN PRN Flushing Discontinued Medications Generic Name Dose Route Start Last Admin Trade Name Freq PRN Reason Stop Dose Admin Diltiazem HCl 180 mg 04/13/18 22:00 04/13/18 22:38 Cardizem Cd 180 Mg PO 04/13/18 22:01 180 mg O ONE Administration Levalbuterol HCl puff 04/13/18 20:24 Xopenex Hfa ORAL INH Q6H PRN Shortness of air/wheezing Magnesium Oxide 400 mg 04/13/18 21:00 04/14/18 08:26 Magox PO 04/14/18 09:01 400 mg BID SERGE Administration Potassium Chloride 20 meq 04/13/18 21:00 04/13/18 21:12 K-Dur 20 Meq Tablet PO 04/13/18 21:01 20 meq O ONE Administration Fluticasone/Salmeterol 1 each 04/13/18 21:00 04/13/18 23:18 Advair Diskus ORAL INH Not Given BID SERGE - Constitutional no acute distress, cooperative - Routine HEENT Exam Head: Present: normocephalic, atraumatic Eye: Present: PERRL ENT: Present: mucous membranes moist - Routine Neck Exam Absent: JVD, carotid bruit - Routine Respiratory Exam Present: decreased breath sounds - Routine Cardiovascular Exam Present: RRR, no murmur - Routine Abdominal Exam Present: soft, normoactive bowel sounds, distended - Routine Extremities Exam Present: no edema, pulses intact, normal capillary refill - Routine Skin Exam Present: intact - Routine Neurological Exam Present: alert, oriented X3, moving all extremities - Routine Psychiatric Exam Present: normal affect, cooperative Results 04/13/18 18:18 04/13/18 18:18 Cardiac Enzymes 04/13/18 04/14/18 04/14/18 Range/Units 18:18 00:50 06:05 AST 45 H (14-36) U/L Troponin I 0.060 0.043 0.042 (0-0.12) ng/ml Lipids 04/14/18 Range/Units 04:17 Triglycerides 273 H (35-135) mg/dL Cholesterol 133 (132-199) mg/dL HDL Cholesterol 23 L (40-60) mg/dL Cholesterol/HDL Ratio 5.8 H (0-4.0) RATIO CBC 04/13/18 Range/Units 18:18 WBC 11.1 H (4.5-11.0) T/MM3 RBC 3.85 L (4.00-5.20) M/MM3 Hgb 9.0 L (12-16) GM/DL Hct 29.7 L (36-46) % Plt Count 349 (130-400) T/MM3 Neut # (Auto) 5.9 (1.8-7.7) T/MM3 Lymph # (Auto) 3.8 (1-4.8) T/MM3 [place] # (Auto) 1.1 H (0-0.8) T/MM3 Eos # (Auto) 0.3 (0-0.5) T/MM3 Baso # (Auto) 0.1 (0-0.2) T/MM3 Comprehensive Metabolic Panel 04/13/18 Range/Units 18:18 Sodium 141 (136-146) MEQ/L Potassium 3.9 (3.6-5) MEQ/L Chloride 103 (98-107) MEQ/L Carbon Dioxide 26 (22-30) MEQ/L BUN 14.0 (7-17) MG/DL Creatinine 1.0 (0.7-1.2) mg/dL Glucose 127 H (65-110) MG/DL Calcium 8.3 L (8.4-10.2) MG/DL AST 45 H (14-36) U/L ALT 29 (1-35) U/L Alkaline Phosphatase 65 (38-126) U/L Total Protein 6.9 (6.3-8.2) g/dL Albumin 3.7 (3.5-5.0) g/dL Intake and Output 04/14/18 04/14/18 04/14/18 06:59 14:59 22:59 Intake Total 360 / 360 220 / 220 Output Total 100 / 100 Balance 260 / 260 220 / 220 Intake: Oral 360 / 360 220 / 220 Output: Urine Amount (Catheter) 100 / 100 Other: Urine Appearance Clear Clear Urine Color Yellow Dark Yellow Urine Odor Normal Normal Size of Bowel Movement Moderate # Voids 1 1 Weight 83 kg Patient Weight 04/15/18 06:59 Weight 83 kg - Imaging and Cardiology Echo: report reviewed EKG results: image reviewed Imaging & Cardiology Narrative: 04/14/18 17:[address] depression sales representatives of progressive ischemia when compared to previous ECG 3 months ago - EKG Interpretation EKG shows: sinus rhythm Assessment and Plan - Assessment and Plan (1) Abnormal EKG Status: Acute (2) Elevated troponin Status: Acute (3) Hypertension Status: Acute (4) Hyperlipidemia Status: Acute (5) Diabetes Status: Acute (6) Coronary artery disease Status: Acute (7) Carotid bruit Status: Acute - Assessment and Plan 04/14/18: ECG with ischemic ST segment changes when compared to ECG 3 months ago. Will proceed with heart cath tomorrow. Pt understands and agrees. Hypotensive this afternoon, monitor vitals. She had a formulation change from her home dosing. Her N/V has completely resolved, hospitalist consult reports likely self limiting food borne illness. Hospital Course Summary Disclaimer: The visit summary below is not to be considered part of the above Progress Note. Hospital Course: Impression Abnormal EKG Nausea- Improved CAD HTN Diabetes- Type 2 Chronic lung disease (?COPD) Chronic oxygen use Hx PE- Chronic anticoagulation- Xarelto Obesity with BMI 32.4 Plan Continued cardiac care as per Dr. Mcdonald. Echocardiogram is pending. Her blood pack sure and continue on home regimen. He generally takes metformin at home. Currently on hold, utilize sliding scale insulin. Continue on chronic oxygen use Advair and Xopenex. Heparin subcutaneous every 8 hours for anticoagulation, home Xarelto currently on hold. Patient does report some mild constipation. Will start MiraLAX daily and milk of magnesia as needed. Given mild leukocytosis. We'll obtain a urinalysis to rule out infection. Nausea appears to be well-controlled, Zofran available as needed. Appreciate consultation. The hospitalist services will continue to follow patient medically manage existing comorbidities. At time of discharge medical care will return to PCP, Judy Whitaker at [facility]. <Nolberto Mcdonald - Last Filed: 04/22/18 16:05> Exam Vital signs: Temperature 98.3 F 04/16/18 16:00 Pulse Rate 68 04/16/18 17:00 Respiratory Rate 29 H 04/16/18 17:00 Blood Pressure 112/77 04/16/18 17:00 Pulse Oximetry 97 04/16/18 17:00 Inpatient Medications: Discontinued Medications Generic Name Dose Route Start Last Admin Trade Name Freq PRN Reason Stop Dose Admin Acetaminophen 325 - 650 mg 04/15/18 15:09 Tylenol PO Q5H PRN Pain Hydrocodone Bitart/Acetaminophen 1 - 2 tab 04/15/18 15:09 [place] 7.5/325 PO Q5H PRN Pain Al Hydroxide/Mg Hydroxide 30 ml 04/15/18 15:09 Maalox Plus PO Q3H PRN Indigestion Aspirin 81 mg 04/14/18 09:00 04/16/18 09:56 Ecotrin PO 81 mg DAILY SERGE Administration Atropine Sulfate 0.5 mg 04/15/18 15:09 Atropine IVP Q5M PRN Bradycardia Bisacodyl 5 - 10 mg 04/15/18 15:09 Dulcolax PO DAILY PRN Constipation Bisacodyl 10 mg 04/15/18 15:09 Dulcolax RECTALLY DAILY PRN Constipation Cyclobenzaprine HCl 10 mg 04/13/18 20:24 04/15/18 02:30 Flexeril PO 10 mg HS PRN Administration Muscle spasm Dextrose 0 ml 04/13/18 20:43 D50%W IVP PRN PRN Hypoglycemia Diltiazem HCl 180 mg 04/14/18 09:00 04/16/18 09:55 Cardizem Sr 90 Mg (12 Hr) PO 180 mg BID SERGE Administration Diltiazem HCl 180 mg 04/13/18 22:00 04/13/18 22:38 Cardizem Cd 180 Mg PO 04/13/18 22:01 180 mg O ONE Administration Glucose 37.5 gm 04/13/18 20:43 Glutose 15 PO PRN PRN Hypoglycemia Heparin Sodium (Porcine) 5,000 units 04/13/18 20:45 04/16/18 17:45 Heparin Sq SQ Not Given Q8HR [facility] Sodium Chloride 1,000 mls @ 75 mls/hr 04/14/18 19:00 04/16/18 01:25 Normal Saline IV 04/15/18 08:19 Infused .[id number] [facility] Infusion Insulin Aspart 1 - 5 unit 04/13/18 20:43 04/16/18 12:03 Novolog SQ 1 unit SS PRN Administration Hyperglycemia Protocol Levalbuterol HCl puff 04/13/18 20:24 Xopenex Hfa ORAL INH Q6H PRN Shortness of air/wheezing Levalbuterol HCl 1.25 mg 04/13/18 23:13 04/16/18 12:38 Xopenex 1.25mg/3ml AEROSOL 1.25 mg Q8H PRN Administration Lisinopril 20 mg 04/13/18 20:30 04/16/18 09:56 Prinivil PO 20 mg DAILY [facility] Administration Lorazepam 0.5 - 1 mg 04/15/18 15:09 Ativan PO Q4H PRN Anxiety Lorazepam 0.5 - 1 mg 04/15/18 15:09 Ativan Inj IVP Q4H PRN Anxiety Magnesium Hydroxide 30 ml 04/14/18 10:38 Mom PO DAILY PRN constipation Magnesium Hydroxide 30 ml 04/15/18 15:09 Mom PO DAILY PRN Constipation Magnesium Oxide 400 mg 04/13/18 21:00 04/14/18 08:26 Magox PO 04/14/18 09:01 400 mg BID [facility] Administration Metoclopramide HCl 5 - 10 mg 04/15/18 15:09 Reglan IVP Q6H PRN Nausea &/or vomiting Morphine Sulfate 2 mg 04/13/18 18:01 Morphine Sulf 2 Mg Inj IVP Q5MIN3 PRN Pain Morphine Sulfate 2 - 4 mg 04/15/18 15:09 Morphine Sulfate Inj IVP Q5M PRN Angina Morphine Sulfate 2 - 4 mg 04/15/18 15:09 04/16/18 02:16 Morphine Sulfate Inj IVP 04/16/18 15:08 4 mg Q2H PRN Administration Pain Nitroglycerin 0.4 mg 04/13/18 20:24 Nitrostat SL Q5M PRN Chest pain Nitroglycerin 0.4 mg 04/15/18 15:09 Nitrostat SL Q5MIN3 PRN Angina Omeprazole 20 mg 04/14/18 06:30 04/16/18 06:36 Prilosec PO 20 mg ACB SERGE Administration Ondansetron HCl 4 mg 04/13/18 19:36 04/13/18 19:42 Zofran IVP 4 mg Q6H PRN Administration Nausea &/or vomiting Ondansetron HCl 4 mg 04/15/18 15:09 Zofran IVP Q6H PRN Nausea &/or vomiting Polyethylene Glycol 17 gm 04/14/18 10:45 04/16/18 09:58 Miralax PO 17 gm DAILY SERGE Administration Potassium Chloride 20 meq 04/13/18 21:00 04/13/18 21:12 K-Dur 20 Meq Tablet PO 04/13/18 21:01 20 meq O ONE Administration Promethazine HCl 12.5 - 25 mg 04/15/18 15:09 Phenergan Inj IVP Q6H PRN Nausea &/or vomiting Fluticasone/Salmeterol 1 each 04/13/18 21:00 04/13/18 23:18 Advair Diskus ORAL INH Not Given BID SERGE Simvastatin 20 mg 04/13/18 21:00 04/15/18 20:26 Zocor PO 20 mg HS SERGE Administration Sodium Chloride 10 - 80 ml 04/13/18 18:01 04/16/18 06:36 Iv Flush IV 10 ml PRN PRN Administration Flushing Results 04/16/18 04:16 04/16/18 04:16 Assessment and Plan - Assessment and Plan (1) Abnormal EKG Status: Resolved (2) Elevated troponin Status: Resolved (3) Hypertension Status: Chronic (4) Hyperlipidemia Status: Chronic (5) Coronary artery disease Status: Chronic (6) Carotid bruit Status: Chronic (7) Diabetes Status: Chronic - Attestation Attestation Narrative: 04/22/18 16:05 Recommendation After examining the patient I agree with the above assessment. I am involved in the formulation of the patient's plan of care. Hospital Course Summary Disclaimer: The visit summary below is not to be considered part of the above Progress Note.
[2018-04-14] MEDS ORDERED: NS 1,000 ML IV SCH (19:00)
[2018-04-14] MEDS: SIMVASTATIN 20 MG TABLET PO SCH (20:17)
[2018-04-15] MEDS: HEPARIN SUB-Q 5,000units/0.5ml INJECTION SQ SCH ×3 (00:10→18:47)
[2018-04-15] MEDS: OMEPRAZOLE 20 MG CAPSULE PO SCH (05:59)
[2018-04-15] MEDS: POLYETHYL GLYCOL 3350 17gm PACKET PO SCH (08:46)
[2018-04-15] MEDS: DILTIAZEM 90 MG PO SCH ×2 (09:00→20:26)
[2018-04-15] MEDS: LISINOPRIL 20 MG TABLET PO SCH (09:03)
[2018-04-15] MEDS: ASPIRIN *EC* 81 MG TABLET PO SCH (09:04)
[2018-04-15] MEDS ORDERED: HEPARIN 1,000 UNITS/500 ML PREMIX (*CVL ONLY*) IV ONE (12:37)
[2018-04-15] MEDS ORDERED: MIDAZOLAM 2mg/2ml INJECTION ONE (12:37)
[2018-04-15] MEDS ORDERED: FentaNYL 100 MCG/2 ML INJECTION ONE (12:37)
[2018-04-15] MEDS ORDERED: LIDOCAINE 1% (10mg/ml) 30ml SDV INJ ONE (12:38)
[2018-04-15] MEDS ORDERED: NS 1,000 ML ONE (13:06)
--- NOTE | 2018-04-15 14:56 | Cardiac Catheterization Report ---
DATE OF PROCEDURE April 15, 2018 REFERRING CLINICIAN Judy Crump, HAIM INDICATIONS The patient is a pleasant 83-year-old lady who was admitted with diaphoresis, nausea, shortness of breath and EKG showed abnormal changes suggestive of ischemia which is different than what she had before, with borderline troponin at the local hospital and was referred for further evaluation by angiography and possible intervention. INFORMED CONSENT Informed consent was obtained after explaining the procedure and the potential risks to the patient who agreed to proceed with the procedure. PROCEDURE 1. Left heart catheterization. 2. Coronary angiography. 3. Left ventriculography. 4. Right femoral angiography to visualize the vessel for closure device. 5. Successful Mynx deployment for hemostasis. TECHNIQUE Patient was prepped and draped in the usual sterile techniques. Conscious sedation was performed using Versed and fentanyl. 1% lidocaine was used for local anesthesia. Using modified Seldinger technique, arterial access was obtained into the right femoral artery with placement of a 6-Dutch arterial sheath. LEFT VENTRICULOGRAPHY Left ventriculography in single-plane FAYE shallow projection showed normal LV systolic function with ejection fraction of about 65% with no mitral regurgitation or gradient across the aortic valve. LVEDP was about 23. CORONARY ANGIOGRAPHY Left main, left anterior descending and diagonals, left circumflex and marginals , and right coronary artery were all free of significant lesions. Right femoral angiography showed patent common femoral, proximal SFA and profunda and therefore Mynx was used for hemostasis. IMPRESSION 1. Normal LV systolic function with ejection fraction of about 65%. 2. No significant coronary obstructive disease. 3. Elevated LV end-diastolic pressure. 4. Successful Mynx deployment for hemostasis. PLAN Medical management. SUE
[2018-04-15] MEDS ORDERED: ACETAMINOPHEN 325 MG TABLET PO PRN (15:09)
[2018-04-15] MEDS ORDERED: Bisacodyl EC TAB 5 MG TABLET PO PRN (15:09)
[2018-04-15] MEDS ORDERED: BISACODYL 10 MG SUPPOSITORY RECTALLY PRN (15:09)
[2018-04-15] MEDS ORDERED: ONDANSETRON 4 MG/2 ML INJECTION IVP PRN (15:09)
[2018-04-15] MEDS ORDERED: HYDROCODONE/APAP 7.5 MG/325 MG TABLET PO PRN (15:09)
[2018-04-15] MEDS ORDERED: NITROGLYCERIN 0.4 MG SUBLINGUAL TABLET SL PRN (15:09)
[2018-04-15] MEDS ORDERED: METOCLOPRAMIDE 10mg/2ml INJECTION IVP PRN (15:09)
[2018-04-15] MEDS ORDERED: PROMETHAZINE 25 MG INJECTION IVP PRN (15:09)
[2018-04-15] MEDS ORDERED: ATROPINE 1 MG/ML INJECTION IVP PRN (15:09)
[2018-04-15] MEDS ORDERED: MAG-AL + SIM ORAL LIQUID 30ml PO PRN (15:09)
[2018-04-15] MEDS ORDERED: LORazepam 0.5 MG TABLET PO PRN (15:09)
[2018-04-15] MEDS ORDERED: MORPHINE SULFATE 4mg INJECTION IVP PRN ×2 (15:09)
--- NOTE | 2018-04-15 15:39 | Cardiology Progress Note ---
<Ninfa Wallace L - Last Filed: 04/15/18 17:10> Subjective Principal diagnosis: NSTEMI, nausea and vomiting Interval history: Pt underwent a cardiac cath today with no significant CAD seen. Her chest pain was likely GI in etiology. She is groggy from the heart cath on exam and states she would like to go home but will not have a ride available until tomorrow as she lives out of town. Plan for dismissal tomorrow if recovery is uneventful. She denies chest pain or dyspnea. Exam Vital signs: Temperature 99.1 F 04/15/18 04:30 Pulse Rate 66 04/15/18 06:11 Respiratory Rate 20 04/15/18 06:11 Blood Pressure 113/64 04/15/18 06:11 Pulse Oximetry 97 04/15/18 06:11 Inpatient Medications: Generic Name Dose Route Start Last Admin Trade Name Freq PRN Reason Stop Dose Admin Acetaminophen 325 - 650 mg 04/15/18 15:09 Tylenol PO Q5H PRN Pain Hydrocodone Bitart/Acetaminophen 1 - 2 tab 04/15/18 15:09 [place] 7.5/325 PO Q5H PRN Pain Al Hydroxide/Mg Hydroxide 30 ml 04/15/18 15:09 Maalox Plus PO Q3H PRN Indigestion Aspirin 81 mg 04/14/18 09:00 04/15/18 09:04 Ecotrin PO 81 mg DAILY SERGE Administration Atropine Sulfate 0.5 mg 04/15/18 15:09 Atropine IVP Q5M PRN Bradycardia Bisacodyl 5 - 10 mg 04/15/18 15:09 Dulcolax PO DAILY PRN Constipation Bisacodyl 10 mg 04/15/18 15:09 Dulcolax RECTALLY DAILY PRN Constipation Cyclobenzaprine HCl 10 mg 04/13/18 20:24 04/15/18 02:30 Flexeril PO 10 mg HS PRN Administration Muscle spasm Dextrose 0 ml 04/13/18 20:43 D50%W IVP PRN PRN Hypoglycemia Diltiazem HCl 180 mg 04/14/18 09:00 04/15/18 09:00 Cardizem Sr 90 Mg (12 Hr) PO 180 mg BID SERGE Administration Glucose 37.5 gm 04/13/18 20:43 Glutose 15 PO PRN PRN Hypoglycemia Heparin Sodium (Porcine) 5,000 units 04/13/18 20:45 04/15/18 08:46 Heparin Sq SQ 5,000 units Q8HR SERGE Administration Sodium Chloride 1,000 mls @ 75 mls/hr 04/14/18 19:00 Normal Saline IV .[id number] [facility] Insulin Aspart 1 - 5 unit 04/13/18 20:43 04/14/18 10:43 Novolog SQ 2 unit SS PRN Administration Hyperglycemia Protocol Levalbuterol HCl 1.25 mg 04/13/18 23:13 04/13/18 23:51 Xopenex 1.25mg/3ml AEROSOL 1.25 mg Q8H PRN Administration Lisinopril 20 mg 04/13/18 20:30 04/15/18 09:03 Prinivil PO 20 mg DAILY SERGE Administration Lorazepam 0.5 - 1 mg 04/15/18 15:09 Ativan PO Q4H PRN Anxiety Lorazepam 0.5 - 1 mg 04/15/18 15:09 Ativan Inj IVP Q4H PRN Anxiety Magnesium Hydroxide 30 ml 04/14/18 10:38 Mom PO DAILY PRN constipation Magnesium Hydroxide 30 ml 04/15/18 15:09 Mom PO DAILY PRN Constipation Metoclopramide HCl 5 - 10 mg 04/15/18 15:09 Reglan IVP Q6H PRN Nausea &/or vomiting Morphine Sulfate 2 mg 04/13/18 18:01 Morphine Sulf 2 Mg Inj IVP Q5MIN3 PRN Pain Morphine Sulfate 2 - 4 mg 04/15/18 15:09 Morphine Sulfate Inj IVP Q5M PRN Angina Morphine Sulfate 2 - 4 mg 04/15/18 15:09 Morphine Sulfate Inj IVP 04/16/18 15:08 Q2H PRN Pain Nitroglycerin 0.4 mg 04/13/18 20:24 Nitrostat SL Q5M PRN Chest pain Nitroglycerin 0.4 mg 04/15/18 15:09 Nitrostat SL Q5MIN3 PRN Angina Omeprazole 20 mg 04/14/18 06:30 04/15/18 05:59 Prilosec PO 20 mg ACB SERGE Administration Ondansetron HCl 4 mg 04/13/18 19:36 04/13/18 19:42 Zofran IVP 4 mg Q6H PRN Administration Nausea &/or vomiting Ondansetron HCl 4 mg 04/15/18 15:09 Zofran IVP Q6H PRN Nausea &/or vomiting Polyethylene Glycol 17 gm 04/14/18 10:45 04/15/18 08:46 Miralax PO 17 gm DAILY SERGE Administration Promethazine HCl 12.5 - 25 mg 04/15/18 15:09 Phenergan Inj IVP Q6H PRN Nausea &/or vomiting Simvastatin 20 mg 04/13/18 21:00 04/14/18 20:17 Zocor PO 20 mg HS SERGE Administration Sodium Chloride 10 - 80 ml 04/13/18 18:01 Iv Flush IV PRN PRN Flushing Discontinued Medications Generic Name Dose Route Start Last Admin Trade Name Freq PRN Reason Stop Dose Admin Diltiazem HCl 180 mg 04/13/18 22:00 04/13/18 22:38 Cardizem Cd 180 Mg PO 04/13/18 22:01 180 mg O ONE Administration Levalbuterol HCl puff 04/13/18 20:24 Xopenex Hfa ORAL INH Q6H PRN Shortness of air/wheezing Magnesium Oxide 400 mg 04/13/18 21:00 04/14/18 08:26 Magox PO 04/14/18 09:01 400 mg BID SERGE Administration Potassium Chloride 20 meq 04/13/18 21:00 04/13/18 21:12 K-Dur 20 Meq Tablet PO 04/13/18 21:01 20 meq O ONE Administration Fluticasone/Salmeterol 1 each 04/13/18 21:00 04/13/18 23:18 Advair Diskus ORAL INH Not Given BID SERGE - Constitutional no acute distress, obese, cooperative - Routine HEENT Exam Head: Present: normocephalic Eye: Present: PERRL, conjunctivae pink - Routine Neck Exam Absent: JVD, carotid bruit - Routine Respiratory Exam Present: decreased breath sounds - Routine Cardiovascular Exam Present: RRR, no murmur - Routine Abdominal Exam Present: soft - Routine Extremities Exam Present: no edema, pulses intact - Routine Skin Exam Present: intact - Routine Neurological Exam Present: alert, oriented X3 - Routine Psychiatric Exam Present: normal affect Results 04/13/18 18:18 04/13/18 18:18 Intake and Output 04/15/18 04/15/18 04/15/18 06:59 14:59 22:59 Intake Total 480 / 480 Output Total 225 / 225 100 / 100 Balance 255 / 255 -100 / -100 Intake: Oral 480 / 480 Output: Urine 225 / 225 100 / 100 Other: Stool Color Brown Stool Consistency Formed Size of Bowel Movement Small # Bowel Movements 1 Laboratory Results - last 24 hr 04/14/18 04/14/18 04/15/18 17:22 21:00 06:01 Glucometer 144 149 140 - Imaging and Cardiology Echo: report reviewed EKG results: image reviewed Assessment and Plan - Assessment and Plan (1) Abnormal EKG Status: Acute (2) Elevated troponin Status: Resolved (3) Hypertension Status: Chronic (4) Hyperlipidemia Status: Chronic (5) Diabetes Status: Chronic (6) Coronary artery disease Status: Chronic (7) Carotid bruit Status: Chronic - Assessment and Plan 04/14/18: ECG with ischemic ST segment changes when compared to ECG 3 months ago. Will proceed with heart cath tomorrow. Pt understands and agrees. Hypotensive this afternoon, monitor vitals. She had a formulation change from her home dosing. Her N/V has completely resolved, hospitalist consult reports likely self limiting food borne illness. 04/15/18: Cardiac cath completed today, no significant CAD seen. Continue risk factor management with ASA, statin medical therapy.\ Recommend aggressive DM2 management as well. No further N/V Continue to hold Metformin for 48 hours, may restart Wednesday evening dose upon dismissal Hospital Course Summary Disclaimer: The visit summary below is not to be considered part of the above Progress Note. <Nolberto Mcdonald - Last Filed: 04/22/18 16:10> Exam Vital signs: Temperature 98.3 F 04/16/18 16:00 Pulse Rate 68 04/16/18 17:00 Respiratory Rate 29 H 04/16/18 17:00 Blood Pressure 112/77 04/16/18 17:00 Pulse Oximetry 97 04/16/18 17:00 Inpatient Medications: Discontinued Medications Generic Name Dose Route Start Last Admin Trade Name Freq PRN Reason Stop Dose Admin Acetaminophen 325 - 650 mg 04/15/18 15:09 Tylenol PO Q5H PRN Pain Hydrocodone Bitart/Acetaminophen 1 - 2 tab 04/15/18 15:09 [place] 7.5/325 PO Q5H PRN Pain Al Hydroxide/Mg Hydroxide 30 ml 04/15/18 15:09 Maalox Plus PO Q3H PRN Indigestion Aspirin 81 mg 04/14/18 09:00 04/16/18 09:56 Ecotrin PO 81 mg DAILY SERGE Administration Atropine Sulfate 0.5 mg 04/15/18 15:09 Atropine IVP Q5M PRN Bradycardia Bisacodyl 5 - 10 mg 04/15/18 15:09 Dulcolax PO DAILY PRN Constipation Bisacodyl 10 mg 04/15/18 15:09 Dulcolax RECTALLY DAILY PRN Constipation Cyclobenzaprine HCl 10 mg 04/13/18 20:24 04/15/18 02:30 Flexeril PO 10 mg HS PRN Administration Muscle spasm Dextrose 0 ml 04/13/18 20:43 D50%W IVP PRN PRN Hypoglycemia Diltiazem HCl 180 mg 04/14/18 09:00 04/16/18 09:55 Cardizem Sr 90 Mg (12 Hr) PO 180 mg BID SERGE Administration Diltiazem HCl 180 mg 04/13/18 22:00 04/13/18 22:38 Cardizem Cd 180 Mg PO 04/13/18 22:01 180 mg O ONE Administration Glucose 37.5 gm 04/13/18 20:43 Glutose 15 PO PRN PRN Hypoglycemia Heparin Sodium (Porcine) 5,000 units 04/13/18 20:45 04/16/18 17:45 Heparin Sq SQ Not Given Q8HR [facility] Sodium Chloride 1,000 mls @ 75 mls/hr 04/14/18 19:00 04/16/18 01:25 Normal Saline IV 04/15/18 08:19 Infused .[id number] [facility] Infusion Insulin Aspart 1 - 5 unit 04/13/18 20:43 04/16/18 12:03 Novolog SQ 1 unit SS PRN Administration Hyperglycemia Protocol Levalbuterol HCl puff 04/13/18 20:24 Xopenex Hfa ORAL INH Q6H PRN Shortness of air/wheezing Levalbuterol HCl 1.25 mg 04/13/18 23:13 04/16/18 12:38 Xopenex 1.25mg/3ml AEROSOL 1.25 mg Q8H PRN Administration Lisinopril 20 mg 04/13/18 20:30 04/16/18 09:56 Prinivil PO 20 mg DAILY SERGE Administration Lorazepam 0.5 - 1 mg 04/15/18 15:09 Ativan PO Q4H PRN Anxiety Lorazepam 0.5 - 1 mg 04/15/18 15:09 Ativan Inj IVP Q4H PRN Anxiety Magnesium Hydroxide 30 ml 04/14/18 10:38 Mom PO DAILY PRN constipation Magnesium Hydroxide 30 ml 04/15/18 15:09 Mom PO DAILY PRN Constipation Magnesium Oxide 400 mg 04/13/18 21:00 04/14/18 08:26 Magox PO 04/14/18 09:01 400 mg BID SEGRE Administration Metoclopramide HCl 5 - 10 mg 04/15/18 15:09 Reglan IVP Q6H PRN Nausea &/or vomiting Morphine Sulfate 2 mg 04/13/18 18:01 Morphine Sulf 2 Mg Inj IVP Q5MIN3 PRN Pain Morphine Sulfate 2 - 4 mg 04/15/18 15:09 Morphine Sulfate Inj IVP Q5M PRN Angina Morphine Sulfate 2 - 4 mg 04/15/18 15:09 04/16/18 02:16 Morphine Sulfate Inj IVP 04/16/18 15:08 4 mg Q2H PRN Administration Pain Nitroglycerin 0.4 mg 04/13/18 20:24 Nitrostat SL Q5M PRN Chest pain Nitroglycerin 0.4 mg 04/15/18 15:09 Nitrostat SL Q5MIN3 PRN Angina Omeprazole 20 mg 04/14/18 06:30 04/16/18 06:36 Prilosec PO 20 mg ACB SERGE Administration Ondansetron HCl 4 mg 04/13/18 19:36 04/13/18 19:42 Zofran IVP 4 mg Q6H PRN Administration Nausea &/or vomiting Ondansetron HCl 4 mg 04/15/18 15:09 Zofran IVP Q6H PRN Nausea &/or vomiting Polyethylene Glycol 17 gm 04/14/18 10:45 04/16/18 09:58 Miralax PO 17 gm DAILY SERGE Administration Potassium Chloride 20 meq 04/13/18 21:00 04/13/18 21:12 K-Dur 20 Meq Tablet PO 04/13/18 21:01 20 meq O ONE Administration Promethazine HCl 12.5 - 25 mg 04/15/18 15:09 Phenergan Inj IVP Q6H PRN Nausea &/or vomiting Fluticasone/Salmeterol 1 each 04/13/18 21:00 04/13/18 23:18 Advair Diskus ORAL INH Not Given BID SERGE Simvastatin 20 mg 04/13/18 21:00 04/15/18 20:26 Zocor PO 20 mg HS SERGE Administration Sodium Chloride 10 - 80 ml 04/13/18 18:01 04/16/18 06:36 Iv Flush IV 10 ml PRN PRN Administration Flushing Results 04/16/18 04:16 04/16/18 04:16 Assessment and Plan - Assessment and Plan (1) Abnormal EKG Status: Resolved (2) Elevated troponin Status: Resolved (3) Hypertension Status: Chronic (4) Hyperlipidemia Status: Chronic (5) Coronary artery disease Status: Chronic (6) Carotid bruit Status: Chronic (7) Diabetes Status: Chronic - Attestation Attestation Narrative: 04/22/18 16:10 Recommendation After examining the patient I agree with the above assessment. I am involved in the formulation of the patient's plan of care. Hospital Course Summary Disclaimer: The visit summary below is not to be considered part of the above Progress Note.
[2018-04-15] MEDS: INSULIN ASPART 100unit/ml INJECTION SQ PRN ×2 (18:45→20:44)
[2018-04-15] MEDS: SIMVASTATIN 20 MG TABLET PO SCH (20:26)
[2018-04-16] MEDS: HEPARIN SUB-Q 5,000units/0.5ml INJECTION SQ SCH ×3 (00:06→17:45)
[2018-04-16] MEDS: OMEPRAZOLE 20 MG CAPSULE PO SCH (06:36)
[2018-04-16] MEDS: DILTIAZEM 90 MG PO SCH (09:55)
[2018-04-16] MEDS: ASPIRIN *EC* 81 MG TABLET PO SCH (09:56)
[2018-04-16] MEDS: LISINOPRIL 20 MG TABLET PO SCH (09:56)
[2018-04-16] MEDS: POLYETHYL GLYCOL 3350 17gm PACKET PO SCH (09:58)
[2018-04-16] MEDS: INSULIN ASPART 100unit/ml INJECTION SQ PRN (12:03)
[2018-04-16 13:48] VITALS: PULSE 68
[2018-04-16 17:10] VITALS: BP 112/77; RESP 29; TEMP 98.3; O2SAT 97
--- NOTE | 2018-04-16 18:26 | Discharge Summary ---
Discharge Information Date of admission: 04/13/18 17:35 Anticipated date of discharge: 04/16/18 Attending Physician: Nolberto Mcdonald MD Primary care physician: Judy Crump APRN Consults: 04/13/18 18:08 Physician Consult [CONS] Routine Consulting Provider: Ranjan Ramirez Reason For Exam: nausea/vomiting Ordering Provider has Notified Certified Anesthesiologist Assistant: Yes 04/14/18 09:00 Inpatient Diabetic Consult [CONS] Routine Diabetic Diagnosis: E11.9 Type 2 DM w/o comp Diabetic Training: Detect Complications Medications - Discharge Diagnosis (1) Abnormal EKG Status: Resolved (2) Elevated troponin Status: Resolved (3) Hypertension Status: Chronic (4) Hyperlipidemia Status: Chronic (5) Diabetes Status: Chronic (6) Coronary artery disease Status: Chronic (7) Carotid bruit Status: Chronic External Problems Reviewed (CCD)?: Yes - Procedures Procedures: DATE OF PROCEDURE April 15, 2018 REFERRING CLINICIAN Judy Crump APRN INDICATIONS The patient is a pleasant 83-year-old lady who was admitted with diaphoresis, nausea, shortness of breath and EKG showed abnormal changes suggestive of ischemia which is different than what she had before, with borderline troponin at the local hospital and was referred for further evaluation by angiography and possible intervention. INFORMED CONSENT Informed consent was obtained after explaining the procedure and the potential risks to the patient who agreed to proceed with the procedure. PROCEDURE 1. Left heart catheterization. 2. Coronary angiography. 3. Left ventriculography. 4. Right femoral angiography to visualize the vessel for closure device. 5. Successful Mynx deployment for hemostasis. TECHNIQUE Patient was prepped and draped in the usual sterile techniques. Conscious sedation was performed using Versed and fentanyl. 1% lidocaine was used for local anesthesia. Using modified Seldinger technique, arterial access was obtained into the right femoral artery with placement of a 6-Amharic arterial sheath. LEFT VENTRICULOGRAPHY Left ventriculography in single-plane FAYE shallow projection showed normal LV systolic function with ejection fraction of about 65% with no mitral regurgitation or gradient across the aortic valve. LVEDP was about 23. CORONARY ANGIOGRAPHY Left main, left anterior descending and diagonals, left circumflex and marginals , and right coronary artery were all free of significant lesions. Right femoral angiography showed patent common femoral, proximal SFA and profunda and therefore Mynx was used for hemostasis. IMPRESSION 1. Normal LV systolic function with ejection fraction of about 65%. 2. No significant coronary obstructive disease. 3. Elevated LV end-diastolic pressure. 4. Successful Mynx deployment for hemostasis. PLAN Medical management. 04/13/2018 echo IMPRESSION 1. Normal LV systolic function with ejection fraction of 65%. 2. Left atrial dilation. 3. Aortic sclerosis with mild aortic insufficiency. 4. Trace of mitral regurgitation. 5. Mild tricuspid regurgitation with estimated pulmonary artery systolic pressure of 31 which is at the upper limits of normal. 6. Asymmetric septal hypertrophy with no outflow obstruction. - Laboratory Labs: 04/16/18 04:16 04/16/18 04:16 Laboratory Last Values WBC 10.1 T/MM3 (4.5-11.0) 04/16/18 04:16 RBC 3.61 M/MM3 (4.00-5.20) L 04/16/18 04:16 Hgb 8.3 GM/DL (12-16) L 04/16/18 04:16 Hct 28.5 % (36-46) L 04/16/18 04:16 MCV 78.9 UM3 (80-100) L 04/16/18 04:16 MCH 23.0 UUG (26-34) L 04/16/18 04:16 MCHC 29.1 GM/DL (31-37) L 04/16/18 04:16 RDW Std Deviation 44.1 FL (36.9-50.2) 04/16/18 04:16 Plt Count 311 T/MM3 (130-400) 04/16/18 04:16 MPV 10.6 UM3 (9.4-12.4) 04/16/18 04:16 Immature Gran % (Auto) 0.2 % (0.0-0.5) 04/13/18 18:18 Neut % (Auto) 52.5 % (33-66) 04/13/18 18:18 Lymph % (Auto) 33.9 % (23-45) 04/13/18 18:18 [place] % (Auto) 9.7 % (0-9.0) H 04/13/18 18:18 Eos % (Auto) 2.9 % (0-4) 04/13/18 18:18 Baso % (Auto) 0.8 % (0-2) 04/13/18 18:18 Neut # (Auto) 5.9 T/MM3 (1.8-7.7) 04/13/18 18:18 Lymph # (Auto) 3.8 T/MM3 (1-4.8) 04/13/18 18:18 [place] # (Auto) 1.1 T/MM3 (0-0.8) H 04/13/18 18:18 Eos # (Auto) 0.3 T/MM3 (0-0.5) 04/13/18 18:18 Baso # (Auto) 0.1 T/MM3 (0-0.2) 04/13/18 18:18 Abs Immat Gran (auto) 0.02 T/MM3 (0.00-0.03) 04/13/18 18:18 Turbidity < 20 (0-20) 04/16/18 04:16 Sodium 141 MEQ/L (136-146) 04/16/18 04:16 Potassium 4.3 MEQ/L (3.6-5) 04/16/18 04:16 Chloride 106 MEQ/L (98-107) 04/16/18 04:16 Carbon Dioxide 27 MEQ/L (22-30) 04/16/18 04:16 Anion Gap 8 meq/L (5-15) 04/16/18 04:16 BUN 9.0 MG/DL (7-17) 04/16/18 04:16 Creatinine 1.0 mg/dL (0.7-1.2) 04/16/18 04:16 Estimated Creat Clear 43 mL/min (>50) 04/16/18 04:16 GFR Calculation 53 mL/min (>60) 04/16/18 04:16 BUN/Creatinine Ratio 9 RATIO (6-26) 04/16/18 04:16 Glucose 113 MG/DL (65-110) H 04/16/18 04:16 Glucometer 125 mg/dL (65-110) 04/16/18 17:16 Hemoglobin A1c 6.3 % (4.0-5.7) H 04/14/18 04:17 Calculated Osmolality 271 MOSM/KG (261-280) 04/16/18 04:16 Calcium 8.1 MG/DL (8.4-10.2) L 04/16/18 04:16 Magnesium 1.6 MG/DL (1.6-2.3) 04/13/18 18:18 Total Bilirubin 0.40 MG/DL (0.20-1.30) 04/13/18 18:18 Icterus Index < 2 (0-7) 04/16/18 04:16 AST 45 U/L (14-36) H 04/13/18 18:18 ALT 29 U/L (1-35) 04/13/18 18:18 Alkaline Phosphatase 65 U/L (38-126) 04/13/18 18:18 Troponin I 0.042 ng/ml (0-0.12) 04/14/18 06:05 Total Protein 6.9 g/dL (6.3-8.2) 04/13/18 18:18 Albumin 3.7 g/dL (3.5-5.0) 04/13/18 18:18 Globulin 3.2 G/DL (2.4-3.6) 04/13/18 18:18 Albumin/Globulin Ratio 1.2 RATIO (1.1-2.2) 04/13/18 18:18 Triglycerides 273 mg/dL (35-135) H 04/14/18 04:17 Cholesterol 133 mg/dL (132-199) 04/14/18 04:17 LDL Cholesterol, Calc 55.4 (66-159) L 04/14/18 04:17 VLDL Cholesterol 54.6 mg/dL (0-28) H 04/14/18 04:17 HDL Cholesterol 23 mg/dL (40-60) L 04/14/18 04:17 Cholesterol/HDL Ratio 5.8 RATIO (0-4.0) H 04/14/18 04:17 TSH 1.84 mIU/L (0.47-4.68) 04/13/18 18:18 Specimen Hemolysis < 15 (0-25) 04/16/18 04:16 Ur Collection Type Urine, void-cc/notcc 04/14/18 13:30 Urine Color Yellow (YELLOW) 04/14/18 13:30 Urine Clarity Clear 04/14/18 13:30 Urine pH 6.0 (5.0-8.0) 04/14/18 13:30 Ur Specific [place] 1.015 (1.015-1.025) 04/14/18 13:30 Urine Protein Negative (NEGATIVE) 04/14/18 13:30 Urine Glucose (UA) Negative (NEGATIVE) 04/14/18 13:30 Urine Ketones Negative (NEGATIVE) 04/14/18 13:30 Urine Occult Blood Negative (NEGATIVE) 04/14/18 13:30 Urine Nitrate Negative (NEGATIVE) 04/14/18 13:30 Urine Bilirubin Negative (NEGATIVE) 04/14/18 13:30 Urine Urobilinogen 1.0 EU/DL (NORMAL) 04/14/18 13:30 Ur Leukocyte Esterase Negative (NEGATIVE) 04/14/18 13:30 Urinalysis Comment Microscopic not ind. 04/14/18 13:30 - Radiology Radiology: 04/14/2018 CXR: Findings: Lungs are clear. No pleural effusion or pneumothorax. Overlying monitoring leads. Evidence of prior CABG. Thoracic spinal fusion right side noted. The left malcom is disconnected from the top pedicle hook. Pulmonary vascularity and mediastinal contours are within normal limits. Impression: No acute cardiopulmonary disease. 04/14/2018 carotid US: IMPRESSION: No hemodynamically significant carotid stenosis. History of Present Illness HPI: Chief complaint: Abnormal EKG, Elevated Troponin, Nausea and Vomiting HPI: Pt is an 83 yo female with PMH including CAD s/p SC in 1973 or 1974, Hypertension, and recently diagnosed DM2 who presented to [facility] in [place] today due too "feeling sick". Patient was evaluated and found to have some new ST depressions and T wave inversions on her EKG as well as a slightly elevated troponin. Pt states she was up all night last night with the dry heaves. She denies CP, palpitations, or dizziness. When asked about her breathing, she states "I'm always short of breath". She denies fever or diarrhea. Pt is admitted to Dr. Mcdonald for further evaluation and cardiac workup. Hospital Course She underwent heart cath and found no significatn CAD. Echo showed EF 65%, LAD, mild AI, tr MR, mild TR, mild PHTN, and Asymmetric septal hypertrophy with no outflow obstruction. Her metformin and Xarelto held for heart cath - will be resumed on DC. Dig was held for HR - but she states she needs it, her HR increases to 100's when she walks. We walked her and her HR up to 90's with wlking and she walks slowly. resume Dig. BP was low on admit, but resolved and we cont her home BP meds for the last 2 days. Labs and VS stable for DC to home with ride with home health. Time spent with patient: 25 - 35 minutes External Problems Reviewed(CCD)?: No Resuscitation Status: Full Code Discharge Plan - Med Rec/Dispo Referrals/Follow Up: Nolberto Mcdonald MD [Physician] - 5-6 Weeks Katarzyna Instructions: [facility] Heart Cath Prescriptions: Continue RX: Digoxin [Digitek] 125 mcg PO DAILY RX: Simvastatin 20 mg PO HS RX: Omeprazole [Prilosec] 20 mg PO ACB RX: Fluticasone/Salmeterol 500/50 [Advair 500-50Diskus] 1 puff INH BID RX: Multivit with [employer]iner[employer] [[employer]] 1 tab PO DAILY RX: Lisinopril [Prinivil] 20 mg PO DAILY RX: Cyclobenzaprine HCl 10 mg PO HS PRN PRN Reason: Muscle Spasm RX: Cholecalciferol (Vitamin D3) [Vitamin D3] 400 unit PO DAILY RX: Nitroglycerin [Nitrostat] 0.4 mg SL Q5M PRN PRN Reason: Chest Pain RX: Ibuprofen 200 - 400 mg PO QID PRN PRN Reason: Discomfort RX: Levalbuterol Tartrate [Xopenex Hfa] 45 mcg INH Q6H PRN PRN Reason: Shortness Of Air/Wheezing RX: Rivaroxaban [Xarelto] 20 mg PO DAILY RX: Meloxicam 15 mg PO DAILY RX: Metformin HCl 500 mg PO DAILY RX: dilTIAZem HCl [Diltiazem ER] 180 mg PO BID - Disposition 01 Discharged Home, Self-Care - Dismissal Complete Discharge Instructions are:: Complete
== END 2018-04-16 19:15 | disposition home or self-care (01) | DRG 287 ==
LOC: CCU → OBSVTOIN 17:35
PROVIDERS: ADMIT Internal Medicine Cardiovascular Disease; ATTEND Internal Medicine Cardiovascular Disease